=== PATIENT | female | born 1945 | race Caucasian/White ===

== ENCOUNTER 2021-11-13 10:53 | Observation (INO) | payer MEDICARE, SELFPAY ==
[2021-11-13] VITALS (33 sets, daily range): BP systolic 126–177; BP diastolic 70–121; PULSE 64–91; RESP 13–21; TEMP 36.3–36.8; O2SAT 96–100; BMI 34.7
--- NOTE | ~2021-11-13 | CT_ITS ---
EXAMINATION: CT brain wo con DATE: 11/13/2021 10:56 INDICATION: Confusion. Cerebral vascular accident. TECHNIQUE: Computed tomography (CT) of the head was performed without intravenous contrast. The mA wa s adjusted according to patient size. Iterative reconstruction technique was employed. The dose-lengt h product was 605.33 mGy-cm. COMPARISON: None FINDINGS: There are scattered areas of low attenuation in the cerebral white matter and bilateral disha p miguel nuclei. There is an old infarct in right frontal lobe. There is an old infarct in right pariet al lobe. There is an old infarct in right insula. There are old infarcts in the right basal ganglia. There is no intracranial hemorrhage, acute infarction, or abnormal intracranial mass lesion. The vent ricles are normal in size. The paranasal sinuses are clear. The mastoid air cells are normal. The orb its are normal. IMPRESSION: 1. Old infarcts involving the right frontal and parietal lobes, right insula, and right basal ganglia . 2. Extensive nonspecific cerebral white matter disease and disease of the deep miguel nuclei, which lik jazmyn represents chronic small vessel ischemic disease. Reviewed, dictated and finalized at location E. HICS INTERN IMPRESSION: 1. Old infarcts involving the right frontal and parietal lobes, right insula, a nd right basal ganglia. 2. Extensive nonspecific cerebral white matter disease and disease of the deep miguel nuclei, which likely represents chronic small vessel ischemic disease.
--- NOTE | ~2021-11-13 | CT_ITS ---
EXAMINATION: CTA BRAIN/CAROTID DATE: 11/13/2021 13:06 INDICATION: Altered mental status TECHNIQUE: Computed tomographic angiography (CTA) of the head and neck was performed with 100 mL Omni paque-350 intravenous contrast. Multiplanar reconstructions and maximum intensity projection 3D-recon structions of the carotid arteries and of the intracranial arteries were created by the technologist on a separate workstation. Automated exposure control and iterative reconstruction technique were emp loyed.The dose-length product was 831.65 mGy-cm. COMPARISON: Head CT dated 11/13/2021 FINDINGS: Carotid arteries: There is small amount of atherosclerotic plaque at the right carotid bifurcation with 0% stenosis of the right carotid bulb relative to normal distal artery lumen diameter (NASCET criteria). There is 0% stenosis of the left carotid bulb relative to normal distal artery lumen diameter. The proximal aspe ct of the bilateral vertebral arteries are tortuous without evident atherosclerotic disease. Multinod ular goiter. With a 2.4 cm mixed solid and cystic left thyroid nodule. Cervical soft tissues are othe rwise unremarkable. Minimal atelectasis at the visualized apices of the lungs. Mild cervical spondylo sis including 2 mm retrolisthesis C4 on C5. Intracranial arteries Small amount of nonhemodynamically significant atherosclerotic calcific a cyst along the bilateral ca rotid siphons. There is no hemodynamically significant stenosis in the vertebral, basilar and interna l carotid arteries. Vertebral arteries are codominant. There are no aneurysms identified. The right P 1 and bilateral A1 segments are patent. The left posterior cerebral artery supplied via a patent left posterior communicating artery. There is also a patent right posterior communicating artery. Cerebra l arterial arborization appears symmetric. And seen are small old infarcts at the right basal ganglia , right insula, right frontal and parietal lobes. IMPRESSION: 1. 0% stenosis of the left and right carotid bulbs relative to normal distal artery lumen diameter (N ASCET criteria). 2. Mild atherosclerotic calcific a cyst at the bilateral carotid siphons. Otherwise unremarkable cere bral CT angiogram with no significant stenosis or aneurysms. 3. Small old infarcts involving the right frontal and parietal lobes, right insula and right basal ga nglia. 4. Multinodular goiter including a 2.4 cm mixed solid and cystic right thyroid nodule. Could consider thyroid ultrasound for risk stratification. Reviewed, dictated and finalized at location A. ET OFFICER IMPRESSION: 1. 0% stenosis of the left and right carotid bulbs relative to normal distal ar jose rafael lumen diameter (NASCET criteria). 2. Mild atherosclerotic calcific a cyst at the bilateral carotid siphons. Other valencia unremarkable cerebral CT angiogram with no significant stenosis or aneurys ms. 3. Small old infarcts involving the right frontal and parietal lobes, right ins mindy and right basal ganglia. 4. Multinodular goiter including a 2.4 cm mixed solid and cystic right thyroid nodule. Could consider thyroid ultrasound for risk stratification.
--- NOTE | ~2021-11-13 | MR_ITS ---
EXAMINATION: MR brain/brain stem wo/w con DATE: 11/14/2021 13:51 INDICATION: Acute confusion. TECHNIQUE: Magnetic resonance imaging (MRI) of the brain and brainstem was performed without with 15 mL MultiHance intravenous contrast. Sequences included sagittal and axial T1-weighted FSE, axial diff usion-weighted FS EPI, axial T2*-weighted GRE, axial T2-weighted FLAIR Propeller, and axial T2-weight ed Propeller. Postcontrast sequences included axial and coronal T1-weighted FSE. Apparent diffusion c oefficient (ADC) maps were created. COMPARISON: Head CT 11/13/2021 FINDINGS: There are old infarcts in right frontal and parietal lobes, posterior right insula, and rig ht basal ganglia. There are scattered areas of nonspecific increased T2-weighted signal intensity in the cerebral white matter and sara and bilateral deep miguel nuclei. There is no intracranial hemorrhag e, acute infarction, or abnormal intracranial mass lesion. The ventricles are normal in size. The mas toid air cells are normal. The paranasal sinuses are clear. The orbits are normal. IMPRESSION: 1. Old infarcts in the right frontal and parietal lobes, posterior right insula, and right basal gang lesvia. 2. Extensive nonspecific cerebral white matter disease and disease of the sara and bilateral deep gra y nuclei, which likely represents chronic small vessel ischemic disease. Reviewed, dictated and finalized at location E. NFORMATICS SUPPORT SPECIALIST IMPRESSION: 1. Old infarcts in the right frontal and parietal lobes, posterior right insula , and right basal ganglia. 2. Extensive nonspecific cerebral white matter disease and disease of the sara and bilateral deep miguel nuclei, which likely represents chronic small vessel is chemic disease.
--- NOTE | ~2021-11-13 | XR_ITS ---
EXAMINATION: XR chest 1V portable DATE: 11/13/2021 11:32 INDICATION: Altered mental status. TECHNIQUE: A single frontal view of the chest was obtained. COMPARISON: None. FINDINGS: The patient is rotated to her left. There is mild atelectasis in left lower lung zone. No p leural effusion or pneumothorax. Cardiomegaly is noted. There is a moderate-sized hiatal hernia. IMPRESSION: 1. Mild atelectasis in left lower lung zone. 2. Moderate-sized hiatal hernia. 3. Cardiomegaly. Reviewed, dictated and finalized at location E. END WEB DEVELOPER
--- NOTE | 2021-11-13 11:01 | ECG_ITS ---
Measurements Intervals [place] Rate: 81 P: CA: 0 QRS: -31 QRSD: 106 T: -3 QT: 375 QTc: 436 Interpretive Statements ATRIAL FIBRILLATION LEFT AXIS DEVIATION DELAYED PRECORDIAL R/S TRANSITION LEFT VENTRICULAR HYPERTROPHY MINIMAL Q WAVES- HIGH LATERAL LEADS BORDERLINE T WAVE ABNORMALITY- INFERIOR LEADS BASELINE ARTIFACT- II, III, AVF ABNORMAL ECG Electronically Signed On 11-13-2021 11:44:25 ELECTRONIC PREPRESS SYSTEM OPERATOR by Devante Oconnor D.O.
--- NOTE | 2021-11-13 11:04 | ED.AMS ---
HPI - Altered Mental Status General Chief Complaint: Altered Mental Status Stated Complaint: CODE STROKE Time Seen by Provider: 11/13/21 11:00 Source: EMS and RN notes reviewed History of Present Illness HPI narrative: Patient presents with altered mental status. Patient with family member around 9 AM when she had acute onset of confusion EMS was called and patient was brought to the ER for evaluation. Patient reports nothing is bothering her she has no focal areas of pain. Denies any past medical history. EMS reports prior history of CVA patient is on chronic anticoagulation Related Data Home Medications Medication Instructions Recorded Confirmed allopurinol 300 mg PO DAILY 11/13/21 amlodipine [Norvasc] 5 mg PO DAILY 11/13/21 apixaban [Eliquis] 5 mg PO BID 11/13/21 aspirin [Aspir-81] 81 mg PO DAILY 11/13/21 atorvastatin 40 mg PO DAILY 11/13/21 gabapentin 300 mg PO BID 11/13/21 metformin 500 mg PO DAILY 11/13/21 metoprolol succinate 50 mg PO BID 11/13/21 tramadol 50 mg PO Q4-8H PRN 11/13/21 Review of Systems Review of Systems: ROS unobtainable: Yes unobtainable due to mental status PMFSH Past Medical History Medical History (Updated 11/13/21 @ 14:28 by Ric Vega MD) CVA (cerebral vascular accident) Diabetes HTN (hypertension) Exam Narrative: GENERAL: Well-appearing, well-nourished, and in no acute distress. HEAD: Normocephalic, atraumatic. EYES: PERRLA and EOMI. ENT: Nares clear, no rhinorrhea or epistaxis. Mucous membranes moist. NECK: Supple. No masses. No JVD CHEST: Clear to auscultation. No respiratory distress. No wheezes rales or rhonchi HEART: Regular rate and rhythm. No murmur heard. Normal peripheral pulses. ABDOMEN: Soft, nontender, nondistended, normal active bowel sounds. EXTREMITIES: Normal range of motion. No edema. SKIN: Warm, dry, no rash. NEURO: Cranial nerves II through XII are intact patient is 5 out of 5 strength in all extremities sensation intact light touch in all extremities no pronator drift alert and oriented to self PSYCH: Normal mood and affect. Course Reevaluation(s) Reevaluation #1: Patient's mental status is improving discussed case with Dr. Davis plan is for admission for further management and EEG. History with family failure reports she was on the phone with work when she started acting confused at work called EMS. Family notes arrived patient was confused. Family reports she has similar event a year ago and was diagnosed with a TIA. Family reports her mental status is improving she is less combative but is slow to recognize them which is unusual for her. Date: 11/13/21 Time: 14:26 Vital Signs Vital signs: Vital Signs Temperature 36.8 C 11/13/21 10:58 Pulse Rate 81 11/13/21 10:58 Respiratory Rate 18 11/13/21 10:58 Blood Pressure 132/121 H 11/13/21 10:58 Pulse Oximetry 99 11/13/21 10:58 Temperature 36.8 C 11/13/21 10:58 Pulse Rate 75 11/13/21 15:01 Respiratory Rate 20 11/13/21 15:01 Blood Pressure 140/77 11/13/21 15:01 Pulse Oximetry 98 11/13/21 15:01 MDM - Altered Mental Status MDM Narrative Medical decision making narrative: Patient with a history of CVA, A. fib presents with sudden onset confusion started around 9:00. Patient no focal neurological deficits on exam and mental status gradually improved per family. Labs imaging obtained. Labs are clinically unremarkable imaging was unremarkable for any acute process. Patient's symptoms past medical history case with Dr. Davis for admission, observation, and EEG for further evaluation. Family is comfortable with inpatient plan. Lab Data Result diagrams: 11/13/21 11:28 11/13/21 11:28 Labs: Lab Results 11/13/21 11/13/21 11/13/21 Range/Units 10:59 11:20 11:20 WBC (4.5-10.0) K/mm3 RBC (4.2-5.4) M/mm3 Hgb (12.0-15.0) g/dL Hct (37.0-47.0) % MCV (80-100) fl MCH (26-34) pg MCHC (32-36) g/d
[2021-11-13 11:07] LABS: Glucose Point of Care 228 mg/dl (65-105)
[2021-11-13] MEDS: SODIUM CHLORIDE 0.9% IV 500 ML 999 ML IV CONT (11:22)
[2021-11-13 11:36] LABS: Basophils Absolute Auto 0.1 K/mm3 (0.0-0.1); Basophils Percent Auto 0.7 % (0.2-1.2); Eosinophils Absolute Auto 0.1 K/mm3 (0-0.3); Eosinophils Percent Auto 0.7 % (0-4.4); Hematocrit 39.9 % (37.0-47.0); Hemoglobin 12.7 g/dL (12.0-15.0); Immature Granulocyte Absolute 0.05 K/mm3 (0.00-0.031); Immature Granulocyte Percent A 0.5 % (0-0.5); Lymphocytes Percent Auto 10.5 % (18.3-44.2); Mean Corpuscular HGB Conc 31.8 g/dl (32-36); Mean Corpuscular Hemoglobin 30.3 pg (26-34); Mean Corpuscular Volume 95.2 fl (80-100); Mean Platelet Volume 10.4 fl (7.4-10.4); Monocytes Absolute Auto 0.5 K/mm3 (0.1-0.6); Monocytes Percent Auto 4.9 % (2.6-8.5); Neutrophils Absolute Auto 7.9 K/mm3 (1.3-6.7); Neutrophils Percent Auto 82.7 % (45.5-73.1); Platelet Count Result 213 k/mm3 (150-375); Red Blood Count 4.19 M/mm3 (4.2-5.4); Red Cell Distribution Width 16.7 % (11.5-14.5); White Blood Count 9.5 K/mm3 (4.5-10.0)
[2021-11-13 11:42] LABS: Add Urine Microscopic? YES; Appearance Urine Clear (Clear); Bilirubin Urine Negative (Negative); Blood Urine Negative (Negative); Color Urine Straw (Yellow); Glucose Urine UA 3+ mg/dL (Negative); Ketones Urine Negative (Negative); Leukocyte Esterase Ur Negative LEU/UL (Negative); Nitrate Urine Negative (Negative); Protein Urine 2+ mg/dL (Negative); Urobilinogen Urine Negative mg/dL (<2.0); WBC Urine 0-3 /hpf
[2021-11-13 11:47] LABS: Ammonia < 9 umol/L (9-30)
[2021-11-13 11:49] LABS: INR 1.1; Prothrombin Time 14.3 Seconds (11.1-14.7)
[2021-11-13 11:50] LABS: Partial Thromboplastin Time 24.5 SECONDS (22.3-36.8)
[2021-11-13 11:53] LABS: Alanine Aminotransferase 19 U/L (4-35); Albumin Level 4.1 g/dL (3.5-5.1); Alkaline Phosphatase 90 U/L (38-126); Anion Gap 6 mmol/L (8-16); Aspartate Amino Transferase 26 U/L (14-36); Bilirubin,Total 0.9 mg/dL (0.2-1.3); Blood Urea Nitrogen 14 mg/dL (7-17); Calcium 9.2 mg/dL (8.4-10.2); Carbon Dioxide 29 mmol/L (22-30); Chloride 103 mmol/L (98-107); Estimated CRCL calculation 61 ml/min; Estimated Glomerular Filt Rate > 60; Glucose 251 mg/dL (65-110); Potassium 4.4 mmol/L (3.4-5.0); Sodium 138 mmol/L (137-145)
[2021-11-13 12:05] LABS: Amphetamine Screen Urine Negative (Negative); Barbiturate Screen Urine Negative (Negative); Benzodiazepines Screen Urine Negative (Negative); Cannabinoid Screen Urine Negative (Negative); Cocaine Screen Urine Negative (Negative); Methadone Screen Urine Negative (Negative); Opiate Screen Urine Negative (Negative); Phencyclidine Screen Urine Negative (Negative)
[2021-11-13 15:43] LABS: SARS-CoV-2 RNA PCR Negative
--- NOTE | 2021-11-13 16:45 | PM.IMHP ---
H&P: HPI History of Present Illness Date/Time: 11/13/21 16:45 <Linda Canales PA-C - Last Filed: 11/13/21 21:58> Chief Complaint: Altered mental status. <Linda Canales PA-C - Last Filed: 11/13/21 21:58> Narrative: This is a pleasant 76-year-old female with history of stroke, hypertension, hyperlipidemia, atrial fibrillation, and diabetes who presented to the emergency department via EMS from home for evaluation of altered mental status. She is alert and oriented at the time my evaluation though is confused as to what occurred earlier today and as such some of the following is supplemented via a review of her electronic medical records. 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 In the middle of the conversation she became confused and she hung up the phone abruptly. She did not answer return phone calls and her boss then called 911. On their arrival the patient was found sitting on the floor next to her bed in no obvious distress, alert to self only. Brain CT done on arrival to the emergency department showed old infarcts but no acute findings. Her vital signs have been stable since arrival though blood pressures have been as high as the 160s over 90s systolic. Her labs and other imaging have thus far been unremarkable. At the time my evaluation she is back to her baseline though she does not really recall exactly what happened earlier though she does remember waking up for the day and foaming her boss. She is uncertain as to how she ended up on the floor. She denies vertigo, focal weakness, paresthesias, auditory changes, visual changes, facial droop, dysphagia, and dysarthria. No recent illness. No chest pain, palpitations, or shortness of breath. She has not had nausea, vomiting, diarrhea, or dysuria. She has no history of seizures. She has not noticed any abrasions or injuries. No recent change in medication. <Linda Canales PA-C - Last Filed: 11/13/21 21:58> Review of Systems Review of Systems: Twelve systems were reviewed and are negative except for as per HPI. <Linda Canales PA-C - Last Filed: 11/13/21 21:58> [facility] Past Medical History Medical History: Medical History (Updated 11/13/21 @ 21:50 by Linda Canales PA-C) Atrial fibrillation Cerebrovascular accident Brain CT on 11/13/2021 showed old infarcts involving the right frontal and parietal lobes, right insula, and right basal ganglia. Chronic anticoagulation Gout Hiatal hernia Hyperlipidemia Hypertension Paroxysmal atrial fibrillation Type 2 diabetes mellitus <Linda Canales PA-C - Last Filed: 11/13/21 21:58> Surgical History Surgical History: Surgical History (Updated 11/13/21 @ 21:46 by Linda Canales PA-C) No history of major surgery within 1 month <Linda Canales PA-C - Last Filed: 11/13/21 21:58> Family History Family History: Family History (Updated 11/13/21 @ 21:46 by Linda Canales PA-C) Other Cerebrovascular accident Diabetes mellitus Hypertension <Linda Canales PA-C - Last Filed: 11/13/21 21:58> Social History Social History: Social History (Updated 11/13/21 @ 21:47 by Linda Canales PA-C) Social History: Surrogate decision maker: Andrés Hicks, nephew. Code status: Full code. Smoking status: Never smoker Alcohol intake: never Substance use: never Additional living arrangements comments: The patient lives in her own home in [place]. 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. <Linda Canales PA-C - Last Filed: 11/13/21 21:58> Meds Home Medications and Allergies Home medications: Home Medications Medication Instructions Recorded Confirmed Type allopurinol 300 mg PO DAILY 11/13/21 11/13/21 History amlodipine
--- NOTE | 2021-11-13 17:37 | ADMGEN ---
This patient, Grisel Bashir, was admitted to Medical Room 345-01. Patient/family oriented to hospital policies and general routines including ID bracelet, bed and alarms, visiting hours, pain management, procedures, bathroom and other care routines, personal items, smoking policy, room service/diet, and visiting hours. Information on how to activate the Rapid Response Team has been discussed. Patient/Family are encouraged to report perceived risks to care and to ask questions if they do not understand what they are told or what they should do.
[2021-11-13] MEDS: GABAPENTIN 300 MG CAPSULE PO (22:58)
[2021-11-13] MEDS: traMADol HCL (*CRX) 50 MG TABLET PO (22:58)
[2021-11-13] MEDS: APIXABAN 5 MG TABLET PO (22:59)
[2021-11-13] MEDS: METOPROLOL TARTRATE 50 MG TAB PO (22:59)
[2021-11-14] VITALS (9 sets, daily range): BP systolic 120–149; BP diastolic 55–88; PULSE 70–87; RESP 16–20; TEMP 36.4–37; O2SAT 96–100
[2021-11-14 06:48] LABS: Hemoglobin A1C 6.5 % (<5.7)
[2021-11-14 06:50] LABS: Anion Gap 2 mmol/L (8-16); Blood Urea Nitrogen 8 mg/dL (7-17); Calcium 9.1 mg/dL (8.4-10.2); Carbon Dioxide 30 mmol/L (22-30); Chloride 105 mmol/L (98-107); Estimated CRCL calculation 81 ml/min; Estimated Glomerular Filt Rate > 60; Glucose 180 mg/dL (65-110); Magnesium 1.6 mg/dL (1.6-2.3); Potassium 3.7 mmol/L (3.4-5.0); Sodium 137 mmol/L (137-145)
[2021-11-14 08:08] LABS: Glucose Point of Care 168 mg/dl (65-105)
[2021-11-14] MEDS: GABAPENTIN 300 MG CAPSULE PO ×2 (08:50→21:41)
[2021-11-14] MEDS: ASPIRIN 81 MG ENTERIC TABLET PO (08:50)
[2021-11-14] MEDS: allopurinoL 300 MG TABLET PO (08:50)
[2021-11-14] MEDS: METOPROLOL TARTRATE 50 MG TAB PO ×2 (08:50→21:41)
[2021-11-14] MEDS: ATORVASTATIN 40 MG TABLET PO (08:50)
[2021-11-14] MEDS: amLODIPine BESYLATE 5 MG TABLET PO (08:50)
[2021-11-14] MEDS: APIXABAN 5 MG TABLET PO ×2 (08:50→18:03)
[2021-11-14 11:56] LABS: Glucose Point of Care 157 mg/dl (65-105)
[2021-11-14] MEDS: traMADol HCL (*CRX) 50 MG TABLET PO ×2 (15:33→21:44)
[2021-11-14 16:39] LABS: Glucose Point of Care 159 mg/dl (65-105)
--- NOTE | 2021-11-14 19:26 | PM.IMPN ---
Progress Note: A&P Assessment and Plan (1) Transient confusion: Code(s): R41.0 - Disorientation, unspecified Status: Acute Assessment and Plan: Acute onset at approximately 09:00 yesterday; symptoms resolved by the time of admission. Etiology not entirely clear but differential diagnosis does include TIA, CVA, seizure, transient global amnesia, versus other. She will be monitor on telemetry overnight and neurologic checks will be performed q.4 hours. Patient carries a history of atrial fibrillation. It is possible she had an episode of bradycardia or tachycardia. Imaging studies have been unrevealing. Awaiting Neurology evaluation at the time of this dictation. Patient is awake alert oriented x3. No telemetry events (2) Multinodular goiter: Code(s): E04.2 - Nontoxic multinodular goiter Status: Acute Assessment and Plan: Multinodular goiter noted on CTA of the head and neck with a 2.4 cm mixed solid and cystic right thyroid nodule. Will check TSH given transient confusion. Thyroid ultrasound can be done on an outpatient basis for risk stratification. (3) Atrial fibrillation: Code(s): I48.91 - Unspecified atrial fibrillation Status: Acute Assessment and Plan: Rate controlled on metoprolol. (4) Chronic anticoagulation: Code(s): Z79.01 - skilled nursing (current) use of anticoagulants Status: Acute Assessment and Plan: Continue apixaban for stroke prophylaxis. (5) Type 2 diabetes mellitus: Code(s): E11.9 - Type 2 diabetes mellitus without complications Status: Acute Assessment and Plan: Hold metformin as she did receive IV contrast. Initiate sliding scale insulin, Accu-Cheks, and hypoglycemic protocol. Check A1c. They GI a 1 C is 6.5. Patient on insulin sliding scale. Fasting blood sugar 180. Accu-Chek in the 159-168 range. (6) Hypertension: Code(s): I10 - Essential (primary) hypertension Status: Acute Assessment and Plan: Blood pressures were reviewed and they have been stable though occasionally up into the 150s and 160 systolic. We will continue with her antihypertensives and monitor blood pressures closely. Make adjustments accordingly. Subjective Date/time seen: 11/14/21 19:26 Narrative:his is a pleasant 76-year-old female with history of stroke, hypertension, hyperlipidemia, atrial fibrillation, and diabetes who presented to the emergency department via EMS from home for evaluation of altered mental status. She is alert and oriented at the time my evaluation though is confused as to what occurred earlier today and as such some of the following is supplemented via a review of her electronic medical records. 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 In the middle of the conversation she became confused and she hung up the phone abruptly. She did not answer return phone calls and her boss then called 911. On their arrival the patient was found sitting on the floor next to her bed in no obvious distress, alert to self only. Brain CT done on arrival to the emergency department showed old infarcts but no acute findings. Her vital signs have been stable since arrival though blood pressures have been as high as the 160s over 90s systolic. Her labs and other imaging have thus far been unremarkable. At the time my evaluation she is back to her baseline though she does not really recall exactly what happened earlier though she does remember waking up for the day and foaming her boss. She is uncertain as to how she ended up on the floor. She denies vertigo, focal weakness, paresthesias, auditory changes, visual changes, facial droop, dysphagia, and dysarthria. No recent illness. No chest pain, palpitations, or shortness of breath. She has not had nausea, vomiting, diarr
[2021-11-14 19:42] LABS: Glucose Point of Care 170 mg/dl (65-105)
[2021-11-15] VITALS: PULSE 79
[2021-11-15] MEDS: ACETAMINOPHEN 325 MG TABLET 650 MG PO ×2 (00:05→08:22)
[2021-11-15 04:00] VITALS: PULSE 85
[2021-11-15 05:30] VITALS: BP 142/110; PULSE 80; RESP 16; TEMP 35.9; O2SAT 98
[2021-11-15 07:48] LABS: Glucose Point of Care 171 mg/dl (65-105)
[2021-11-15 08:00] VITALS: PULSE 80
[2021-11-15 08:17] VITALS: PULSE 78
[2021-11-15] MEDS: METOPROLOL TARTRATE 50 MG TAB PO (08:17)
[2021-11-15] MEDS: traMADol HCL (*CRX) 50 MG TABLET PO (08:17)
[2021-11-15] MEDS: allopurinoL 300 MG TABLET PO (08:17)
[2021-11-15] MEDS: GABAPENTIN 300 MG CAPSULE PO (08:17)
[2021-11-15] MEDS: ASPIRIN 81 MG ENTERIC TABLET PO (09:07)
[2021-11-15] MEDS: amLODIPine BESYLATE 5 MG TABLET PO (09:07)
[2021-11-15] MEDS: APIXABAN 5 MG TABLET PO (09:07)
[2021-11-15] MEDS: ATORVASTATIN 40 MG TABLET PO (09:07)
--- NOTE | 2021-11-15 11:01 | PM.DS ---
DS: Admitting Diagnosis Discharge Date 11/15/2021 Admitting Diagnosis Transient confusion History of AFib History of hypertension DS: Discharge Diagnosis Discharge Diagnosis (1) Transient confusion: Code(s): R41.0 - Disorientation, unspecified Status: Acute Assessment and Plan: Acute onset at approximately 09:00 yesterday; symptoms resolved by the time of admission. Etiology not entirely clear but differential diagnosis does include TIA, CVA, seizure, transient global amnesia, versus other. She will be monitor on telemetry overnight and neurologic checks will be performed q.4 hours. Patient carries a history of atrial fibrillation. It is possible she had an episode of bradycardia or tachycardia. Imaging studies have been unrevealing. Awaiting Neurology evaluation at the time of this dictation. Patient is awake alert oriented x3. No telemetry events (2) Multinodular goiter: Code(s): E04.2 - Nontoxic multinodular goiter Status: Acute Assessment and Plan: Multinodular goiter noted on CTA of the head and neck with a 2.4 cm mixed solid and cystic right thyroid nodule. Will check TSH given transient confusion. Thyroid ultrasound can be done on an outpatient basis for risk stratification. (3) Atrial fibrillation: Code(s): I48.91 - Unspecified atrial fibrillation Status: Acute Assessment and Plan: Rate controlled on metoprolol. (4) Chronic anticoagulation: Code(s): Z79.01 - adjunct faculty for medical terminology (current) use of anticoagulants Status: Acute Assessment and Plan: Continue apixaban for stroke prophylaxis. (5) Type 2 diabetes mellitus: Code(s): E11.9 - Type 2 diabetes mellitus without complications Status: Acute Assessment and Plan: Hold metformin as she did receive IV contrast. Initiate sliding scale insulin, Accu-Cheks, and hypoglycemic protocol. Check A1c. They GI a 1 C is 6.5. Patient on insulin sliding scale. Fasting blood sugar 180. Accu-Chek in the 159-168 range. (6) Hypertension: Code(s): I10 - Essential (primary) hypertension Status: Acute Assessment and Plan: Blood pressures were reviewed and they have been stable though occasionally up into the 150s and 160 systolic. We will continue with her antihypertensives and monitor blood pressures closely. Make adjustments accordingly. DS: Summary Hospital Course Reason for hospitalization: Transient confusion Hospital Course: Patient is 76 years old female was admitted complains of having transient period of confusion at home. Patient has history of atrial fibrillation and hypertension. Will come in the hospital was negative. Today patient is feeling better so patient discharged home in stable condition. Follow-up scheduled with primary care and cardiology outpatient next week. Time spent discussing smoking cessation with patient: 3 to 10 minutes Status at Discharge Cognitive/behavioral status at discharge: Stable Functional status at discharge: independent ambulation Time Spent with Patient Time attestation: Total time spent providing and/or coordinating discharge services: Time spent: Less than 30 minutes Exam Narrative: General: Well-developed elderly female laying in bed. Weight: 80.6 kg. BMI: 34.7. There is no acute distress. HEENT: Normocephalic, atraumatic. PERRL, EOMI. Sclerae anicteric. Oral mucosa moist. Oropharynx clear. Neck: Supple. No JVD, lymphadenopathy, or bruits. Small, nontender right thyroid nodule. Respiratory: Lungs are clear to auscultation bilaterally. Cardiovascular: Irregularly irregular rate and rhythm. Telemetry shows rate controlled atrial fibrillation. Gastrointestinal: Abdomen is soft, nontender, and nondistended with positive bowel sounds. Skin: Warm and dry. No rash or lesions on limited exam. Extremities: No cyanosis, clubbing, or significant edema. Radial and pedal pulses intact. Neurological: Alert and oriented
--- NOTE | 2021-11-17 09:42 | WPDNEUROLOGY ---
Neurology EEG Report General Information Date of Study: 11/14/21 TEST eeg DIAGNOSIS altered mental status CONDITION OF RECORDING awake drowsy and sleep EEG NUMBER [id number] CLINICAL HISTORY patient was brought in to hospital yesterday after becoming confused. Feels back to normal today. Says she had a similar episode 6 years ago that was diagnosed as a TIA. EEG DESCRIPTION Basic resting occipital frequency consists of low to medium voltage 8 to 9 hertz per 2nd disorganized alpha admixed with low to medium voltage 6 to 7 hertz per 2nd theta activity. Bifrontal medium voltage 2 to 3 hertz per 2nd delta activity seen intermittently. Hyperventilation not done. Photic stimulation not done. Non paroxysmal. Nonfocal. Nonlateralizing. IMPRESSION Abnormal record due to the absence of normal background rhythm and due to the presence of bihemispheric theta and delta activity even though there is no evidence of any paroxysmal discharge throughout the tracing. These abnormalities are suggestive of underlying organic or metabolic encephalopathy or else postictal state clinical correlation recommended possibility of neuro degenerative process cannot be ruled out.
== END 2021-11-15 11:42 | disposition home or self-care (01) ==
LOC: ANHED 14:28 → ANH3MED 17:00
PROVIDERS: Physician Assistant; Admitting Provider Family Medicine; Emergency Provider Emergency Medicine; PCP Internal Medicine; Visit Provider Internal Medicine
DX: R41.0 Disorientation, unspecified (principal); I48.20 Chronic atrial fibrillation, unspecified; E11.9 Type 2 diabetes mellitus without complications; E78.5 Hyperlipidemia, unspecified; E04.2 Nontoxic multinodular goiter; Z79.01 Long term (current) use of anticoagulants; Z20.822 Contact with and (suspected) exposure to COVID-19; Z86.73 Personal history of transient ischemic attack (TIA), and cerebral infarction without residual deficits; Z79.899 Other long term (current) drug therapy
CPT/HCPCS: 36415; 51701; 70450; 70496; 70498; 70553; 71045; 80048; 80053; 80307; 81001; 82140; 82607; 82948; 83036; 83735; 84443; 85025; 85610; 85730; 93005; 95816; 96360; 99285; A9270; A9577; C9803; G0378; J7040; Q9967; U0003; U0005